=== PATIENT | male | born 1950 | race American Indian/Alaskan Native ===

== ENCOUNTER 2016-05-10 15:57 | Emergency (ER) | payer MEDICARE ==
[2016-05-10 16:26] LABS: Eosinophils % (Auto) 0.5 % (0.0-4.3); Hematocrit 38.6 % (35.5-45.6); Mean Corpuscular HGB Conc 34 % (32-34); Mean Corpuscular Hemoglobin 29 pg (28-32); Mean Corpuscular Volume 87 fl (84-94); Platelet Count 326 K/mm3 (140-440); Red Blood Count 4.45 M/mm3 (3.65-5.03); Red Cell Distribution Width 13.7 % (13.2-15.2); White Blood Count 11.1 K/mm3 (4.5-11.0)
[2016-05-10 16:32] LABS: INR 0.95 (0.87-1.13)
[2016-05-10 16:33] LABS: Partial Thromboplastin Time 29.9 Sec. (24.2-36.6)
[2016-05-10 16:39] LABS: Creatine Kinase MB 2.6 ng/mL (0.0-4.0)
[2016-05-10 16:41] LABS: Albumin 4.2 g/dL (3.9-5); Albumin/Globulin Ratio 1.4 %; Alkaline Phosphatase 83 units/L (35-129); Anion Gap 18 mmol/L; BUN/Creatinine Ratio 13.75; Bilirubin,Total 0.8 mg/dL (0.1-1.2); Blood Urea Nitrogen 11 mg/dL (9-20); Calcium 8.8 mg/dL (8.4-10.2); Carbon Dioxide 25 mmol/L (22-30); Creatine Kinase 111 units/L (55-170); Glucose 99 mg/dL (75-100); Sodium 133 mmol/L (137-145); Total Protein 7.2 g/dL (6.3-8.2)
--- NOTE | 2016-05-10 16:41 | Emergency Department Report ---
HPI - General Chief Complaint: Weakness Time Seen by Provider: 05/10/16 16:11 - HPI HPI: This is a 65-year-old Afro-[place] male who presents to the emergency department for evaluation of possible stroke. She was last seen at his normal baseline status at 1:15 PM. His daughter went into [facility] and when she came out he was slurring his speech and "his face was twisted." Patient has a past medical history that includes CVA with left-sided hemiparesis as well as diabetes and hypertension. He is on Plavix for his previous stroke. Otherwise no blood thinners. He has not taken anything for symptoms prior to presentation. He denies any headache, vision change, nausea, vomiting or fever. He has a primary care doctor through [facility] but does not have a neurologist. No recent travel or sick contacts at home. ED Past Medical Hx - Past Medical History Hx Hypertension: Yes Hx Congestive Heart Failure: Yes Hx Diabetes: Yes Hx Arthritis: Yes Hx Asthma: No - Surgical History Hx Pacemaker: No - Social History Smoking Status: Current Every Day Smoker - Medications Home Medications: Home Medications Medication Instructions Recorded Confirmed Last Taken Type Aspirin [Aspirin BABY CHEW TAB] 81 mg PO QDAY #30 tab.chew 12/30/14 Unknown Rx AtorvaSTATin [Lipitor] 40 mg PO QHS #30 tablet 12/30/14 Unknown Rx Clopidogrel [Plavix] 75 mg PO QDAY #30 tablet 12/30/14 Unknown Rx Folic Acid [Folvite] 1 mg PO QDAY #30 tablet 12/30/14 Unknown Rx Gabapentin [Neurontin] 300 mg PO BID #60 capsule 12/30/14 Unknown Rx Insulin Glargine [Lantus VIAL] 14 units SUB-Q QHS #1 units 12/30/14 Unknown Rx Nicotine [Habitrol] 14 mg TD QDAY #30 patch 12/30/14 Unknown Rx Thiamine [Vitamin B-1] 100 mg PO QDAY #30 tablet 12/30/14 Unknown Rx amLODIPine [Norvasc] 10 mg PO QDAY #30 tablet 12/30/14 Unknown Rx hydrALAZINE [Apresoline TAB] 10 mg PO Q8H PRN #90 tablet 12/30/14 Unknown Rx ED Review of Systems ROS: Stated complaint: POSS STROKE Other details as noted in HPI Comment: All other systems reviewed and negative Constitutional: denies: chills, fever Eyes: denies: eye pain, eye discharge, vision change ENT: denies: ear pain, throat pain Cardiovascular: denies: chest pain, palpitations Gastrointestinal: denies: abdominal pain, nausea, diarrhea Genitourinary: denies: urgency, dysuria Musculoskeletal: denies: back pain, joint swelling, arthralgia Skin: denies: rash, lesions Neurological: confusion, other (facial asymmetry, slurred speech) Physical Exam - Physical Exam Vital Signs: Vital Signs 05/10/16 16:04 Temperature 99.5 F Blood Pressure 145/75 O2 Sat by Pulse 99 Oximetry Physical Exam: GENERAL: The patient is well-developed well-nourished. HEENT: Normocephalic. Atraumatic. Extraocular motions are intact. Patient has moist mucous membranes. Pupils equal reactive to light bilaterally. NECK: Supple. Trachea is midline. CHEST/LUNGS: Clear to auscultation. There is no respiratory distress noted. HEART/CARDIOVASCULAR: Regular. There is no tachycardia. There is no gallop rub or murmur. ABDOMEN: Abdomen is soft, nontender. Patient has normal bowel sounds. There is no abdominal distention. SKIN: There is no rash. There is no diaphoresis. NEURO: The patient is awake, alert, and oriented. The patient is cooperative. The patient does have some slurred speech and mild aphasia. No facial asymmetry seen. Patient has chronic left-sided hemiparesis that is much worse in the left upper extremity with some contracture of the hand and arm. MUSCULOSKELETAL: There is no tenderness or deformity. There is no evidence of acute injury. ED Course Vital Signs 05/10/16 16:04 Temperature 99.5 F Blood Pressure 145/75 O2 Sat by Pulse 99 Oximetry - Consultations Consultation #1: Radiologist called and the patient has a bleed in the cor plexus going into the ventricle, left thalamic 6 mm bleed and a subarachnoid hemorrhage in the right frontal region. Contacting [facility] for a transfer for neurosurgical services. 05/10/16 17:01 Spoke with [facility] who says that they are lacking in neuro ICU beds. I will still speak with their neurologist if given the chance but I have contacted [facility] as well. 05/10/16 17:10 Consultation #2: Patient is been accepted by the neurosurgeon, Dr. sanches, and I have also spoken to the antique refinisher. Patient will be transported to [facility]. Patient will be started on nicardipine drip with titration below systolic of 150. 05/10/16 17:40 ED Medical Decision Making - Lab Data Result diagrams: 05/10/16 16:15 05/10/16 16:15 - EKG Data -: EKG Interpreted by Me EKG shows normal: sinus rhythm, axis, intervals, QRS complexes, ST-T waves Rate: normal - EKG Data When compared to previous EKG there are: previous EKG unavailable Interpretation: normal EKG - Radiology Data Radiology results: report reviewed CT of the brain without contrast shows a 6 mm acute left thalamic bleed seen with bleed involving the choroid plexus in the left lateral ventricle and a tiny amount of subarachnoid hemorrhage in the right frontal convexity. Very minimal midline shift of third ventricle to the right is seen with very mild dilation of the third ventricle compared to prior study. Tiny focus of subarachnoid hemorrhages seen in the right frontal convexity with tiny right- sided subdural effusion measuring 5 mm and causing no significant mass effect. - Medical Decision Making 65-year-old male presents to the emergency department with possible stroke as he displayed some facial symmetry and some aphasia to his daughter. Patient's labs have been unremarkable. However the CT of the brain shows left thalamic bleed, bleed of the choroid plexus in the left ventricle as well as a small amount of right subarachnoid hemorrhage. Patient has been started on nicardipine drip to give blood pressure control with a systolic less than 150. A gram of Keppra has been given. Patient has been accepted for transfer to [facility] by Dr. sanches, neurosurgery. Transportation has been called. Family has been updated. - Differential Diagnosis ischemic CVA, hemorrhagic stroke, dementia, TIA Critical Care Time: No Critical care attestation.: If time is entered above; I have spent that time in minutes in the direct care of this critically ill patient, excluding procedure time. ED Disposition Clinical Impression: Hemorrhagic cerebrovascular accident (CVA), Thalamic hemorrhage, Subarachnoid bleed, Left-sided weakness Disposition: DC/TX ANOTHER TYPE HEALTHCARE Is pt being admited?: No Condition: Stable Time of Disposition: 17:46
[2016-05-10 16:51] LABS: Alanine Aminotransferase < 5 units/L (7-56)
--- NOTE | 2016-05-10 17:00 | Cat Scan Report ---
FINAL REPORT PROCEDURE: CT HEAD/BRAIN WO CON TECHNIQUE: Computerized tomography of the head was performed without contrast material. HISTORY: suspected stroke COMPARISON: CT exam dated December 27, 2014 FINDINGS: Mild changes of chronic sinusitis are seen. Paranasal sinuses appear clear. No calvarial fracture is seen. There is likely mild subdural effusion on the right that is a changed appearance since prior study. This measures approximately 5 millimeters in thickness and causes little mass effect. Tiny amount of acute subarachnoid hemorrhage is seen in the right frontal convexity. There is acute hemorrhage in the left choroid plexus. Small focus of hemorrhage is seen in the region of the left thalamus very near the left lateral ventricle only measuring 6 millimeters in size. There is likely mild dilation of the 3rd ventricle compared to prior study with minimal displacement of 1-2 millimeters to the right compared to prior study. Old lacunar infarcts are seen in the right basal ganglia and head of the right caudate nucleus with moderate chronic small vessel ischemic changes seen in the periventricular white matter. Multiple old infarcts are seen in the cerebellum. IMPRESSION: 6 millimeter acute left thalamic bleed is seen with bleed involving the choroid plexus in the left lateral ventricle and a tiny amount of subarachnoid hemorrhage in the right frontal convexity. Very minimal midline shift of the 3rd ventricle to the right is seen with very mild dilation of the 3rd ventricle compared to prior study. Tiny focus of subarachnoid hemorrhage is seen in the right frontal convexity with tiny right-sided subdural effusion measuring 5 millimeters in causing no significant mass effect. Critical results were discussed with Dr. Vizcaino at 4:56 p.m. on May 10, 2016.
[2016-05-10] MEDS ORDERED: NORMODYNE IV ONE (17:06)
[2016-05-10] MEDS ORDERED: KEPPRA 1,000 MG in D5W 100 ML IV ONE (17:40)
[2016-05-10] MEDS ORDERED: CARDENE DRIP 40 MG/200 ML 200 ML IV SCH (18:00)
[2016-05-10] MEDS ORDERED: KEPPRA 1,000 MG/NS 0.75% 100ML 100 ML IV ONE ×2 (18:05→18:21)
[2016-05-10 18:21] VITALS: BP 159/77
== END 2016-05-10 18:38 | disposition other institution (70) ==
LOC: ED 15:57
DX: I62.9 Nontraumatic intracranial hemorrhage, unspecified (principal); E32.8 Other diseases of thymus; M62.81 Muscle weakness (generalized); I10 Essential (primary) hypertension; I50.9 Heart failure, unspecified; E11.9 Type 2 diabetes mellitus without complications; M19.90 Unspecified osteoarthritis, unspecified site; F17.200 Nicotine dependence, unspecified, uncomplicated; Z79.82 Long term (current) use of aspirin; Z79.4 Long term (current) use of insulin
CPT/HCPCS: 36415; 70450; 80053; 82550; 82553; 84484; 85025; 85610; 85670; 85730; 86850; 86900; 86901; 96374; 96375; 99285; G0480; J1953; 80320